=== PATIENT | female | born 1965 | race Caucasian/White ===

== ENCOUNTER → 2017-03-26 | Outpatient (CLI) | payer OTHER ==
[~2017-03-26] VITALS: Ht 162.6 cm; Wt 79.4 kg
[~2017-03-26] MED LIST: AMBIEN10 MG PO; DARVOCET-N 1001 EACH PO; EXCEDRIN MIGRA1 EAC1 PO; FLEXERIL10 MG PO; KLONOPIN0.5 M1 PO; MOBIC7.5 MG PO; MOTRIN800 MG PO; OMEPRAZOLE20 MG PO; PAXIL20 MG; PRAVACHOL40 MG PO; PREDNISONE20 MG PO; PRILOSEC20 MG PO; TRAZODONE HCL100 MG PO; VALIUM5 MG PO; ZITHROMAX250 MG PO
== END | disposition home or self-care (01) ==
LOC: AMB 08:33
DX: Z12.11 Encounter for screening for malignant neoplasm of colon (principal); R93.3 Abnormal findings on diagnostic imaging of other parts of digestive tract; D12.5 Benign neoplasm of sigmoid colon; K63.5 Polyp of colon; K31.7 Polyp of stomach and duodenum; K44.9 Diaphragmatic hernia without obstruction or gangrene; K64.8 Other hemorrhoids; K21.9 Gastro-esophageal reflux disease without esophagitis; F17.210 Nicotine dependence, cigarettes, uncomplicated; R00.2 Palpitations; Z80.42 Family history of malignant neoplasm of prostate; Z82.5 Family history of asthma and other chronic lower respiratory diseases
CPT/HCPCS: 88305; 88342 TC